=== PATIENT | male | born 1990 | race African-American/Black ===

== ENCOUNTER 2022-12-29 08:20 | Outpatient (CLI) | payer OTHER, SELFPAY | END 2022-12-29 08:21 | disposition home or self-care (01) | LOC: NFLDREF 22:06 | PROVIDERS: PCP Physician Assistant Medical; Referring Provider Physician Assistant Medical; Visit Provider Physician Assistant Medical | DX: Z00.00 Encounter for general adult medical examination without abnormal findings (principal); E78.5 Hyperlipidemia, unspecified; R79.89 Other specified abnormal findings of blood chemistry | CPT/HCPCS: 80053; 80061 ==